=== PATIENT | male | born 1990 | race Caucasian/White ===

== ENCOUNTER 2020-04-01 18:15 | Emergency (ER) | payer MEDICAID, OTHER ==
--- NOTE | 2020-04-01 19:39 | EDM.PDOC ---
ED HPI GENERAL MEDICAL PROBLEM - General Chief Complaint: Neuro Symptoms/Deficits Stated Complaint: MEDICAL VIA [facility] Time Seen by Provider: 04/01/20 19:00 Source of Information: Reports: Patient, EMS History Limitations: Reports: Other (Initiall post dictal and IM ketamine, improved rapidly) - History of Present Illness INITIAL COMMENTS - FREE TEXT/NARRATIVE: 29-year-old male with known seizure disorder was at a local restaurant sitting in his car when he had a generalized seizure. EMS was called and they found the patient to be postictal. In route to the hospital he started waking up and became very agitated and somewhat violent so was given 250 mg of IM ketamine. Onto the hospital he was physically stable but under the influence of ketamine and unable to communicate. No outward evidence of trauma was seen, he was afebrile. Onset: Sudden Duration: Hour(s):. No: Minutes: ( 30 minutes ago) Associated Symptoms: Reports: Other (anxiety). Denies: Headaches, Nausea/Vomiting, Shortness of Breath Treatments HIGH LIGHTER: Reports: IV/IO denies Pain Score (Numeric/FACES): 0 - Related Data Allergies Allergy/AdvReac Type Severity Reaction Status Date / Time No Known Allergies Allergy Verified 04/01/20 19:01 Home Meds: Home Meds levETIRAcetam [Keppra] 1,000 mg PO BID 04/01/20 [History] Past Medical History - Past Surgical History Other HEENT Surgeries/Procedures: unable to obtain Social & Family History - Tobacco Use Smoking Status *Q: Current Some Day Smoker Years of Tobacco use: 10 Packs/Tins Daily: 0 Used Tobacco, but Quit: No Second Hand Smoke Exposure: Yes - Caffeine Use Caffeine Use: Reports: Soda - Alcohol Use Days Per Week of Alcohol Use: 2 Number of Drinks Per Day: 5 Total Drinks Per Week: 10 - Recreational Drug Use Recreational Drug Use: No ED ROS GENERAL - Review of Systems Review Of Systems: See Below Constitutional: Denies: Fever, Chills, Malaise Respiratory: Denies: Shortness of Breath Cardiovascular: Denies: Chest Pain GI/Abdominal: Denies: Abdominal Pain, Nausea, Vomiting Skin: Reports: No Symptoms Neurological: Denies: Headache Psychiatric: Reports: Anxiety - Physical Exam Exam: See Below Text/Narrative:: Exam is done after the ketamine wore off and the patient was cooperative Exam Limited By: No Limitations General Appearance: Alert, No Apparent Distress Eye Exam: Bilateral Eye: Normal Inspection (Initially mild nystagmus was present but wore off when ketamine wore off), PERRL Throat/Mouth: Normal Inspection Head Exam: Atraumatic Neck: Supple, Non-Tender Respiratory/Chest: Lungs Clear Cardiovascular: Regular Rate, Rhythm, Tachycardia GI/Abdominal: Soft, Non-Tender Neuro Exam (Abbreviated): Alert, Oriented, No Motor/Sensory Deficits Psychiatric: Anxious Skin Exam: Warm, Dry Course - Vital Signs Last Recorded V/S: Last Vital Signs Temp 96.9 F 04/01/20 19:06 Pulse 111 H 04/01/20 19:06 Resp 40 H 04/01/20 19:06 BP 149/101 H 04/01/20 19:06 Pulse Ox 95 04/01/20 19:06 - Orders/Labs/Meds Meds: Medications Discontinued Medications Generic Name Dose Route Start Last Admin Trade Name Freq PRN Reason Stop Dose Admin Levetiracetam 250 mg/ Sodium 102.5 mls @ 400 mls/hr 04/01/20 19:37 04/01/20 19:48 Chloride IV 04/01/20 19:51 400 mls/hr ONETIME ONE Administration - Re-Assessments/Exams Free Text/Narrative Re-Assessment/Exam: 04/01/20 22:47 After the ketamine wore off and the patient became oriented, he admitted that he had received a speeding ticket yesterday, and was very stressed and anxious about the ticket. It was bothering him significantly while he was waiting for his food at [employer] and possibly triggered the seizure. He also recently started Keppra within the last 2 weeks, thinks he may have missed 1 or 2 doses in the past week. 1 hour after arriving to the emergency room he had no physical com plaints and felt back to baseline 04/01/20 22:48 Patient was given 250 mg of IV Keppra, and discharged. He is to continue his regular medications and encouraged not to miss any doses. Departure - Departure Time of Disposition: 21:08 Disposition: Home, Self-Care 01 Clinical Impression: Epileptic seizure, generalized - Discharge Information Instructions: Seizure, Adult, [id number] Referrals: PCP,None [Primary Care Provider] - Forms: ED Department Discharge Care Plan Goals: Recheck as scheduled and resume regular medicines Sepsis Event Note (ED) - Evaluation Sepsis Screening Result: No Definite Risk - Focused Exam Vital Signs: Vital Signs Temp Pulse Resp BP Pulse Ox 04/01/20 19:06 96.9 F 111 H 40 H 149/101 H 95 04/01/20 18:52 94 25 H 145/95 H 95 04/01/20 18:25 96.9 F 111 H 40 H 149/101 H 95
== END 2020-04-01 21:09 | disposition home or self-care (01) ==
LOC: JP.ED 18:15
DX: G40.909 Epilepsy, unspecified, not intractable, without status epilepticus (principal); F17.200 Nicotine dependence, unspecified, uncomplicated
CPT/HCPCS: 96374; 99284; J1953; J7050